=== PATIENT | female | born 1970 | race Caucasian/White ===

== ENCOUNTER → 2023-12-27 14:15 | Outpatient (REF) | payer BC, SELFPAY | LOC: HWWDC 14:15 | PROVIDERS: ATTENDING PHYSICIAN Obstetrics & Gynecology Gynecology; FAMILY PHYSICIAN Physician Assistant Medical | DX: Z12.31 Encounter for screening mammogram for malignant neoplasm of breast (principal) | CPT/HCPCS: 77063; 77067 ==

== ENCOUNTER 2024-11-03 06:20 | Day surgery (SDC) | payer BC, SELFPAY | END 2024-11-03 09:27 | disposition home or self-care (01) | LOC: GI 06:20 | PROVIDERS: ATTENDING PHYSICIAN Internal Medicine Gastroenterology | DX: Z12.11 Encounter for screening for malignant neoplasm of colon (principal) | CPT/HCPCS: G0121 ==